=== PATIENT | female | born 1945 | race Two or more races ===

== ENCOUNTER 2020-07-29 12:54 | Inpatient (IN) | payer OTHER ==
[~2020-07-29] VITALS: Ht 157.5 cm; Wt 89.8 kg
[~2020-07-29 12:54] MED LIST: ALBU0.084 NEB; CITA10TA70 PO; FLUT1AER3 IN; GABA-339 PO; LORA1TAB23 PO; MELO1TAB73 PO; METO10TA3 PO; OMEP-434 PO; PRED10TA PO; TRAM50TA2 PO; ZOLP10TA PO; ZOLP10TA6 PO
[2020-07-29] MEDS ORDERED: methylPREDNISolone SOD SUCC 125 MG/2 ML VL IV ONE (13:15)
[2020-07-29 14:35] LABS: Basophils # (auto) 0 10 ^3/uL (0-0.2); Basophils % (auto) 0.4 % (0.0-2.0); Eosinophils # (auto) 0 10 ^3/uL (0-0.8); Eosinophils % (auto) 0.1 % (0.0-7.0); Lymphocytes # (auto) 0.8 10 ^3/uL (0.4-5.4); Lymphocytes % (auto) 10.5 % (10.0-50.0); Mean Corpuscular Hemoglobin 29.5 pg (28.0-32.0); Mean Corpuscular Hgb Conc. 32.3 g/dL (32.0-36.0); Mean Corpuscular Volume 91.3 fL (80.0-100.0); Monocytes # (auto) 0.5 10 ^3/uL (0-1.3); Monocytes % (auto) 6.4 % (0.0-12.0); Neutrophils # (auto) 6.4 10 ^3/uL (1.6-8.6); Neutrophils % (auto) 82.6 % (37.0-80.0); Platelet Count (auto) 211 10^3/uL (140-450); Red Blood Cells 4.05 10^6/uL (4.0-5.20); Red Cell Distribution Width 17.1 % (11.8-14.3); White Blood Cell 7.7 10^3/uL (4.4-10.8)
[2020-07-29 15:05] LABS: Albumin 3.1 g/dL (3.4-5.0); Anion Gap 5 (5-15); Blood Urea Nitrogen 18 mg/dL (7-18); Calcium 7.8 mg/dL (8.5-10.1); Carbon Dioxide 32 mmol/L (21-32); Chloride 105 mmol/L (98-107); GFR African American 88 mL/min; GFR Non-African American 72 mL/min; Glucose 100 mg/dL (74-106); Potassium 4.1 mmol/L (3.5-5.1); Sodium 142 mmol/L (136-145)
[2020-07-29 15:08] LABS: Lactic Acid w/Reflex 2.4 mmol/L (0.4-2.0)
[2020-07-29 15:10] LABS: Alanine Aminotransferase 20 U/L (13-56); Alkaline Phosphatase 69 U/L (45-117); Aspartate Aminotransferase 4 U/L (15-37); Bilirubin, Total 0.4 mg/dL (0.2-1.0); Total Protein 6.4 g/dL (6.4-8.2)
[2020-07-29] MEDS ORDERED: ONDANSETRON HCL 4 MG/2 ML VIAL IV ONE (15:15)
[2020-07-29] MEDS ORDERED: MORPHINE SULFATE 4 MG/ML SYR/VIAL IV ONE (15:15)
[2020-07-29] MEDS ORDERED: MORPHINE SULF INJ 2 MG/ML SYRINGE 1ML IV PRN ×2 (15:30)
[2020-07-29] MEDS ORDERED: HYDROcodone-ACET 5/325MG TAB PO PRN (15:30)
[2020-07-29] MEDS ORDERED: ACETAMINOPHEN 325 MG TAB PO PRN (15:30)
[2020-07-29] MEDS ORDERED: ALUM & MAG HYDROX-SIMETH LIQ(MAALOX) 30 ML PO PRN (15:30)
[2020-07-29] MEDS ORDERED: NITROGLYCERIN 0.4 MG SL TAB SL PRN (15:30)
[2020-07-29] MEDS ORDERED: ALBUTEROL SULF 2.5 MG/0.5ML(0.5%) NEB SOLN NEB ONE (15:30)
[2020-07-29] MEDS ORDERED: AZITHROMYCIN 500MG/ 250ML 250 ML IV ONE (15:30)
[2020-07-29] MEDS ORDERED: DOCUSATE SOD 100 MG CAP PO PRN (15:30)
[2020-07-29] MEDS ORDERED: SODIUM CHLORIDE 0.9% 1,000 ML IV SCH (15:30)
[2020-07-29] MEDS ORDERED: ONDANSETRON HCL 4 MG/2 ML VIAL IV PRN (15:30)
[2020-07-29 16:27] LABS: Urine Bacteria NONE SEEN /hpf (None Seen); Urine Blood Negative /uL (Negative); Urine Specific Gravity 1.015 (1.001-1.035); Urine WBC <1 /hpf (0 - 5)
[2020-07-29 16:38] LABS: Alcohol, Urine < 3.0 mg/dL (0-10); Amphetamine Screen, Urine NEGATIVE (NEGATIVE); Barbiturate Scree,Urine NEGATIVE (NEGATIVE); Benzodiazephine Screen, Urine NEGATIVE (NEGATIVE); Cannabinoid Screen, Urine NEGATIVE (NEGATIVE); Cocaine Screen, Urine NEGATIVE (NEGATIVE); Opiate Scree,Urine NEGATIVE (NEGATIVE); Phencyclidine Screen, Urine NEGATIVE (NEGATIVE)
[2020-07-29] MEDS ORDERED: FUROSEMIDE 20 MG/2 ML VIAL IV ONE (16:45)
[2020-07-29] MEDS ORDERED: ASPirin 81 mg TAB PO ONE (16:45)
[2020-07-29] MEDS ORDERED: ATORVASTATIN 20 MG TAB PO ONE (16:45)
[2020-07-29] MEDS ORDERED: LORazepam 0.5 MG TAB ONE (18:35)
[2020-07-29] MEDS: LORazepam 0.5 MG TAB PO PRN ×2 (18:35→19:02)
[2020-07-29] MEDS: IPRATROPIUM BROM 0.5 MG/2.5ML INH SOL NEB SCH ×2 (19:42→22:25)
[2020-07-29] MEDS: ALBUTEROL SULF 2.5 MG/0.5ML(0.5%) NEB SOLN NEB PRN ×2 (19:43→22:25)
[2020-07-29 20:30] LABS: Cholesterol 192 mg/dL (< 200); HDL Cholesterol 95 mg/dL (40-59); LDL Cholesterol 85 mg/dL (< 100); Triglycerides 90 mg/dL (< 150)
[2020-07-29 20:59] VITALS: BP 150/87
[2020-07-29] MEDS ORDERED: ATORVASTATIN 20 MG TAB PO SCH (22:00)
[2020-07-29] MEDS: GABAPENTIN 300 MG CAP PO SCH (22:27)
[2020-07-29] MEDS: CARVEDILOL 3.125 MG TAB PO SCH (22:27)
[2020-07-29] MEDS: methylPREDNISolone SOD SUCC 40 MG/ML VL IV SCH (22:28)
[2020-07-29] MEDS: FAMOTIDINE (10MG/ML) 2ML VL IV SCH (22:28)
[2020-07-29] MEDS ORDERED: TEMAZEPAM 15 MG CAP PO ONE (22:30)
[2020-07-30] MEDS: IPRATROPIUM BROM 0.5 MG/2.5ML INH SOL NEB SCH ×4 (02:25→14:30)
[2020-07-30 05:14] VITALS: BP 159/89
[2020-07-30] MEDS: GABAPENTIN 300 MG CAP PO SCH (05:35)
[2020-07-30] MEDS: methylPREDNISolone SOD SUCC 40 MG/ML VL IV SCH (05:35)
[2020-07-30] MEDS: LORazepam 0.5 MG TAB PO PRN (05:49)
[2020-07-30] MEDS ORDERED: FUROSEMIDE 20 MG/2 ML VIAL IV SCH (06:00)
[2020-07-30 07:53] LABS: Basophils # (auto) 0 10 ^3/uL (0-0.2); Basophils % (auto) 0.6 % (0.0-2.0); Eosinophils # (auto) 0 10 ^3/uL (0-0.8); Hematocrit 39.7 % (36.0-46.0); Hemoglobin 12.9 g/dL (12.2-16.2); Lymphocytes # (auto) 0.5 10 ^3/uL (0.4-5.4); Lymphocytes % (auto) 6.3 % (10.0-50.0); Mean Corpuscular Hemoglobin 29.3 pg (28.0-32.0); Mean Corpuscular Hgb Conc. 32.5 g/dL (32.0-36.0); Mean Corpuscular Volume 90.1 fL (80.0-100.0); Monocytes # (auto) 0.2 10 ^3/uL (0-1.3); Monocytes % (auto) 2.8 % (0.0-12.0); Neutrophils # (auto) 6.9 10 ^3/uL (1.6-8.6); Neutrophils % (auto) 90.3 % (37.0-80.0); Platelet Count (auto) 242 10^3/uL (140-450); Red Cell Distribution Width 16.9 % (11.8-14.3); White Blood Cell 7.7 10^3/uL (4.4-10.8)
[2020-07-30 08:09] LABS: INR 0.99 (0.9-1.15); Partial Thromboplastin Time 24.2 sec (23.0-31.2)
[2020-07-30 08:10] LABS: Potassium 3.8 mmol/L (3.5-5.1)
[2020-07-30 08:16] LABS: Albumin 3.4 g/dL (3.4-5.0); BUN/Creatinine Ratio 25.9; Bilirubin, Total 0.6 mg/dL (0.2-1.0); Calcium 8.6 mg/dL (8.5-10.1); Magnesium 2.5 mg/dL (1.6-2.6); Phosphorus 3.2 mg/dL (2.5-4.90); Total Protein 7.2 g/dL (6.4-8.2)
[2020-07-30 09:00] VITALS: BP 134/72
[2020-07-30] MEDS ORDERED: AZITHROMYCIN 500MG/ 250ML 250 ML IV SCH (10:00)
[2020-07-30] MEDS ORDERED: ASPirin 81 mg TAB PO SCH (10:00)
[2020-07-30] MEDS ORDERED: ENOXAPARIN SOD 40 MG/0.4 ML SYRINGE SC SCH (10:00)
[2020-07-30] MEDS ORDERED: LISINOPRIL 5 MG TAB PO SCH (10:00)
[2020-07-30] MEDS: FAMOTIDINE (10MG/ML) 2ML VL IV SCH (10:36)
[2020-07-30] MEDS: CARVEDILOL 3.125 MG TAB PO SCH (10:37)
[2020-07-30 12:46] VITALS: BP 139/72
[2020-07-30 14:01] VITALS: BP 139/72
== END 2020-07-30 14:30 | disposition home or self-care (01) | DRG 292 ==
LOC: ER 12:54 → TELE 12:55 → TELE-CENTR 07-30 04:03
PROVIDERS: ADMIT Hospitalist; ATTEND Internal Medicine
DX: I11.0 Hypertensive heart disease with heart failure (principal); N39.0 Urinary tract infection, site not specified; E44.1 Mild protein-calorie malnutrition; J45.901 Unspecified asthma with (acute) exacerbation; J44.0 Chronic obstructive pulmonary disease with (acute) lower respiratory infection; I50.23 Acute on chronic systolic (congestive) heart failure; E66.01 Morbid (severe) obesity due to excess calories; G62.9 Polyneuropathy, unspecified; Z20.822 Contact with and (suspected) exposure to COVID-19; D64.9 Anemia, unspecified; E78.5 Hyperlipidemia, unspecified; Z79.899 Other long term (current) drug therapy; Z68.36 Body mass index [BMI] 36.0-36.9, adult; Z80.0 Family history of malignant neoplasm of digestive organs; Z85.028 Personal history of other malignant neoplasm of stomach; Z90.710 Acquired absence of both cervix and uterus; Z98.51 Tubal ligation status
CPT/HCPCS: 36415; 36600; 71045; 80053; 80061; 80307; 81001; 82306; 82728; 82805; 83036; 83605; 83735; 83880; 84100; 84443; 84484; 85025; 85379; 85610; 85730; 86141; 87040; 87086; 87426; 93005; 94640; 96365; 96375; G0378; J2405; J3490